=== PATIENT | male | born 1990 | race Two or more races ===

== ENCOUNTER 2017-04-16 13:22 | Emergency (ER) | payer OTHER ==
[2017-04-16 13:26] VITALS: BP 109/61; PULSE 61; TEMP 98.1; BMI 25.0
--- NOTE | 2017-04-16 14:59 | PDOC ---
History of Present Illness - General Chief Complaint: Injury Stated Complaint: RT ANKLE PAIN Time Seen by Provider: 04/16/17 14:21 History Source: Patient Exam Limitations: No Limitations - History of Present Illness Initial Comments: 04/16/17 14:54 CHIEF COMPLAINT:Injury to the right lateral ankle and foot. HISTORY OF PRESENT ILLNESS: Patient is an otherwise healthy 26-year-old male, presents emergency Department with injury to right ankle and foot reports running and twisted right foot and a pot hole. Incident occurred yesterday. Now with swelling, bruising to right lateral foot. Unable to bear weight on right foot. Patient also requesting advice states 2 weeks ago had episode of rectal bleeding has not had any since no abdominal pain, no current rectal bleeding is asking for follow-up recommendation. Occurred: reports: yesterday Severity: reports: moderate Pain Location: reports: lower extremity Method of Injury: Yes: fall Modifying Factors: improves with: cold therapy, pain medication (ibuprofen) Loss of Consciousness: no loss of consciousness Associated Symptoms (Fall): denies symptoms Past History - Past Medical History Allergies/Adverse Reactions: Allergies Allergy/AdvReac Type Severity Reaction Status Date / Time No Known Allergies Allergy Verified 04/16/17 13:26 Home Medications: Ambulatory Orders Ibuprofen [Motrin -] 600 mg PO QID #28 tablet 04/16/17 Anemia: No Thyroid Disease: No - Immunization History Td Vaccination: Yes Immunization Up to Date: No - Suicide/Smoking/Psychosocial Hx Smoking Status: No Smoking History: Never smoked Years of Tobacco Use: 0 Have you smoked in the past 12 months: No Number of Cigarettes Smoked Daily: 0 Cigars Per Day: 0 Information on smoking cessation initiated: No Hx Alcohol Use: No Drug/Substance Use Hx: No Substance Use Type: None Review of Systems - Review of Systems Constitutional: No: Symptoms Reported Musculoskeletal: Yes: Joint Pain, Joint Swelling Integumentary: Yes: Bruising (right foot), Erythema Neurological: Yes: Unsteady Gait (unable to bear weight on right foot). No: Paresthesia, Tingling, Tremors, Weakness All Other Systems: Reviewed and Negative *Physical Exam - Vital Signs Last Vital Signs Temp Pulse Resp BP Pulse Ox 98.1 F 61 18 109/61 99 04/16/17 13:24 04/16/17 13:24 04/16/17 13:24 04/16/17 13:24 04/16/17 13:24 - Physical Exam General Appearance: Yes: Appropriately Dressed. No: Apparent Distress Neck: negative: Tender lateral, Tender midline Respiratory/Chest: positive: Lungs Clear, Normal Breath Sounds. negative: Respiratory Distress, Accessory Muscle Use Cardiovascular: positive: Regular Rhythm, Regular Rate Gastrointestinal/Abdominal: positive: Normal Bowel Sounds, Soft. negative: Tender, Decreased BS, Distended, Guarding, Rebound, Tenderness Rectal Exam: positive: hemorrhoids Musculoskeletal: positive: Decreased Range of Motion (right foot). negative: Normal Inspection Extremity: positive: Pedal Edema, Swelling, Inflammation Integumentary: positive: Erythema, Swelling, Ecchymosis, Bruising Neurologic: positive: Alert, Normal Mood/Affect, Normal Response, Motor Strength 5/5 Procedures - Splinting Splint Location: Right: Foot Pre-Proc Neuro Vasc Exam: normal Hand-Made Type: orthoglass Splint Type: Yes: Short Leg Post-Proc Neuro Vasc Exam: normal Henrik Bandage: 3" Complications: No Progress: 04/16/17 15:00 Crutches given for nonweightbearing ED Treatment Course - RADIOLOGY Radiology Studies Ordered: Category Date Time Status ANKLE & FOOT-RIGHT* [RAD] Stat Radiology 04/16/17 14:29 Completed Medical Decision Making - Medical Decision Making 04/16/17 15:00 A/P: Patient here for evaluation of injury to right foot there is significant soft tissue swelling or bruising to the dorsum and right lateral foot. X-ray demonstrated no acute fracture however on my wet read I noted possible avulsion to navicular. I have applied splint, see procedure note, crutches for nonweightbearing status. Patient to follow-up with orthopedics for further evaluation and review of x-ray. I discussed the physical exam findings, ancillary test results and final diagnoses with the patient. I answered all of the patient's questions. The patient was satisfied with the care received and felt comfortable with the discharge plan and treatment plan. The patient will call to arrange follow-up and will return to the Emergency Department with any new, persistent or worsening symptoms. *DC/Admit/Observation/Transfer Diagnosis at time of Disposition: Foot injury Qualifiers: Encounter type: initial encounter Laterality: right Qualified Code(s): S99.921A - Unspecified injury of right foot, initial encounter - Discharge Dispostion Disposition: HOME Condition at time of disposition: Good Admit: No - Prescriptions Prescriptions: Ibuprofen [Motrin -] 600 mg PO QID #28 tablet - Referrals Referrals: Gumaro Pierre MD [Staff Physician] - Miko Johnson MD [Staff Physician] - (follow up for GI. ) - Patient Instructions Additional Instructions: 1. Please return to the emergency department with any redness, swelling, increased pain, or any other concerns. 2. Keep splint on. 3. Please follow up in the office of Dr. Pierre within a week , call tomorrow to make an appointment as soon as possible. 4. No weightbearing 5. Ice and elevate when at rest. 6. Motrin for pain - Post Discharge Activity Forms/Work/School Notes: Back to Work
== END 2017-04-16 15:14 | disposition home or self-care (01) ==
LOC: JERFT 13:22
PROC: 2W3QX1Z Immobilization of Right Lower Leg using Splint (ICD-10-PCS; principal; 2017-04-16)
DX: S99.821A Other specified injuries of right foot, initial encounter (principal); X50.1XXA Overexertion from prolonged static or awkward postures, initial encounter; Y93.02 Activity, running; Y92.89 Other specified places as the place of occurrence of the external cause; Y99.8 Other external cause status
CPT/HCPCS: 73610-TC-RT; 73630-TC-RT; 99281-25